=== PATIENT | female | born 1965 | race Native Hawaiian/Other Pacific Islander ===

== ENCOUNTER 2019-10-23 16:13 | Outpatient (CLI) | payer BC | END 2019-10-23 21:32 | disposition home or self-care (01) | LOC: LABW 16:13 | DX: B35.1 Tinea unguium (principal) | CPT/HCPCS: 36415; 84450; 84460 ==

== ENCOUNTER 2019-12-09 15:11 | Outpatient (CLI) | payer BC | END 2019-12-09 22:35 | disposition home or self-care (01) | LOC: LABW 15:11 | DX: B35.1 Tinea unguium (principal) | CPT/HCPCS: 36415; 84450; 84460 ==

== ENCOUNTER 2021-02-25 09:15 | Outpatient (CLI) | payer BC ==
[2021-02-25 09:42] LABS: PLATELET COUNT 298 K/uL (152-353)
[2021-02-25 09:48] LABS: POTASSIUM 4.9 mmol/L (3.6-5.2)
== END 2021-02-25 21:54 | disposition home or self-care (01) ==
LOC: LABW 09:15
PROVIDERS: ATTEND Internal Medicine
DX: Z00.00 Encounter for general adult medical examination without abnormal findings (principal); B35.1 Tinea unguium
CPT/HCPCS: 36415; 80053; 81000; 82043; 82570; 85027

== ENCOUNTER 2021-06-17 08:35 | Outpatient (CLI) | payer BC ==
[2021-06-17 08:55] LABS: PLATELET COUNT 321 K/uL (152-353)
[2021-06-17 09:13] LABS: POTASSIUM 4.2 mmol/L (3.6-5.2)
== END 2021-06-17 21:01 | disposition home or self-care (01) ==
LOC: LABW 08:35
PROVIDERS: ATTEND Podiatrist
DX: Z00.00 Encounter for general adult medical examination without abnormal findings (principal); B35.1 Tinea unguium
CPT/HCPCS: 36415; 80053; 80061; 81000; 82043; 82570; 84443; 85027

== ENCOUNTER 2021-12-23 12:23 | Outpatient (CLI) | payer BC | END 2021-12-23 20:00 | disposition home or self-care (01) | LOC: LABW 12:23 | PROVIDERS: ATTEND Internal Medicine | DX: E03.9 Hypothyroidism, unspecified (principal) | CPT/HCPCS: 36415; 84439; 84443 ==